=== PATIENT | female | born 1960 | race Caucasian/White ===

== ENCOUNTER 2016-08-20 16:45 | Emergency (ER) | payer BC ==
[2016-08-20 17:00] VITALS: BP 135/92
[2016-08-20] MEDS ORDERED: Sodium Chloride 0.9% 10 ML Syringe FLUSH PRN (17:29)
[2016-08-20] MEDS ORDERED: Lactated Ringers 1,000 ML IV SCH (17:30)
[2016-08-20] MEDS ORDERED: Ondansetron 4 MG/2 ML SDV IVPUSH ONE (17:31)
--- NOTE | 2016-08-20 17:33 | EDM.PDOC ---
ED HISTORY OF PRESENT ILLNESS - General Chief Complaint: Gastrointestinal Problem Stated Complaint: HEADACHE,VOMITING Time Seen by Provider: 08/20/16 17:22 Source: Reports: Patient, Family, RN notes reviewed History Limitations: Reports: No limitations - History of Present Illness INITIAL COMMENTS - FREE TEXT/NARRATIVE: 56-year-old female presents emergency department for a complaint of nausea, vomiting and diarrhea she states she has a loose watery stool about every 15 minutes denies any fevers any sick contacts any recent travel. 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: Musculoskeletal History: Reports: Arthritis Psychiatric History: Reports: Anxiety, Depression Endocrine/Metabolic History: Reports: Obesity/BMI 30+ - Infectious Disease History Infectious Disease History: Reports: Chicken pox - Past Surgical History GI Surgical History: Reports: Cholecystectomy, Colonoscopy, EGD Female Surgical History: Reports: Hysterectomy Musculoskeletal Surgical History: Reports: Arthroscopic knee, Other (see below) Other Musculoskeletal Surgeries/Procedures:: arthroscopic knee left x2 Social & Family History - Family History Family Medical History: Noncontributory - Tobacco Use Smoking Status *Q: Current Every Day Smoker Years of Tobacco use: 30 Packs/Tins Daily: 0.1 - Recreational Drug Use Recreational Drug Use: No ED ROS GENERAL - Review of Systems Review Of Systems: See Below Constitutional: Denies: fever, chills HEENT: Reports: No symptoms Respiratory: Reports: No Symptoms Cardiovascular: Reports: No symptoms GI/Abdominal: Reports: Abdominal pain, Diarrhea, Nausea, Vomiting : Reports: no symptoms ED EXAM, GENERAL - Physical Exam Exam: See Below Free Text/Narrative:: General: Female, not in any distress, alert and oriented x3 HEENT: head is atraumatic normocephalic, eyes pupils equal round reactive to light, sclera clear no conjunctivitis appreciated. Ears blocked by cerumen bilaterally. Nose no septal deviation, nares are clear, no blood present. Mouth mucosa is dry and pink no erythema or exudate noted in soft palate, tongue is midline uvula is midline, dentition is intact. Neck: Supple no thyromegaly no tracheal deviation. Nodes: Cervical nodes subclavicular nodes nontender no palpable lymphadenopathy noted. Lungs: clear to auscultation bilaterally with symmetrical respirations, no adventitious noise appreciated. CV: Regular rate and rhythm S1 and S2 appreciated no murmurs rubs or gallops noted. Abdomen: Soft, nontender, no palpable masses or organomegaly appreciated, no distention no guarding bowel sounds are present, . Neuro: Cranial nerves II through XII grossly intact Skin: Warm and dry, intact Extremities: No lower extremity edema appreciated, pedal pulse is +2. Course - Vital Signs Last Recorded V/S: Last Vital Signs Temp 99.0 F 08/20/16 17:11 Pulse 77 08/20/16 17:11 Resp 16 08/20/16 17:11 BP 135/92 H 08/20/16 17:11 Pulse Ox 98 08/20/16 17:11 - Orders/Labs/Meds Orders: Active Orders 24 hr Category Date Time Status Peripheral IV Care [RC] . DIRECTED Care 08/20/16 17:30 Active CLOSTRIDIUM DIFFICILE BY PCR [RM] Stat Lab 08/20/16 18:19 Uncollected CULTURE STOOL + SHIGATOX [RM] Stat Lab 08/20/16 18:19 Uncollected UA W/MICROSCOPIC [URIN] Urgent Lab 08/20/16 17:29 Uncollected WBC, STOOL [OP] Stat Lab 08/20/16 18:19 Uncollected Lactated Ringers [Ringers, Lactated] 1,000 ml Med 08/20/16 17:30 Active IV ASDIRECTED Sodium Chloride 0.9% [Saline Flush] Med 08/20/16 17:29 Active 10 ml FLUSH ASDIRECTED PRN Peripheral IV Insertion Adult [OM.PC] Urgent Oth 08/20/16 17:29 Ordered Medication Orders Lactated Ringer's (Ringers, Lactated) 1,000 mls @ 999 mls/hr IV ASDIRECTED WILLIAM Last Admin: 08/20/16 17:45 Dose: 999 mls/hr Sodium Chloride (Saline Flush) 10 ml FLUSH ASDIRECTED PRN PRN Reason: Keep Vein Open Last Admin: 08/20/16 17:45 Dose: 10 ml Labs: Laboratory Tests 08/20/16 08/20/16 08/20/16 Range/Units 17:29 17:29 17:29 WBC 11.0 (4.5-11.0) K/uL RBC 5.43 (3.30-5.50) M/uL Hgb 15.6 H (12.0-15.0) g/dL Hct 47.1 (36.0-48.0) % MCV 87 (80-98) fL MCH 29 (27-31) pg MCHC 33 (32-36) % Plt Count 369 (150-400) K/uL Neut % (Auto) 93 H (36-66) % Lymph % (Auto) 4 L (24-44) % [place] % (Auto) 3 (2-6) % Eos % (Auto) 0 L (2-4) % Baso % (Auto) 0 (0-1) % Sodium 144 (140-148) mmol/L Potassium 3.9 (3.6-5.2) mmol/L Chloride 106 (100-108) mmol/L Carbon Dioxide 26 (21-32) mmol/L Anion Gap 11.6 (5.0-14.0) mmol/L BUN 17 (7-18) mg/dL Creatinine 1.0 (0.6-1.0) mg/dL Est Cr Clr Drug Dosing 66.43 mL/min Estimated GFR (MDRD) 58 L (>60) Glucose 139 H (74-106) mg/dL Lactic Acid 2.1 H (0.4-2.0) mmol/L Calcium 9.2 (8.5-10.1) mg/dL Total Bilirubin 0.7 (0.2-1.0) mg/dL AST 14 L (15-37) U/L ALT 25 (12-78) U/L Alkaline Phosphatase 86 (46-116) U/L Total Protein 8.8 H (6.4-8.2) g/dL Albumin 3.9 (3.4-5.0) g/dL Globulin 4.9 H (2.3-3.5) g/dL Albumin/Globulin Ratio 0.8 L (1.2-2.2) Lipase 77 (73-393) U/L Meds: Medications Generic Name Dose Route Start Last Admin Trade Name Freq PRN Reason Stop Dose Admin Lactated Ringer's 1,000 mls @ 999 mls/hr 08/20/16 17:30 08/20/16 17:45 Ringers, Lactated IV 999 mls/hr ASDIRECTED WILLIAM Administration Sodium Chloride 10 ml 08/20/16 17:29 08/20/16 17:45 Saline Flush FLUSH 10 ml ASDIRECTED PRN Administration Keep Vein Open Discontinued Medications Generic Name Dose Route Start Last Admin Trade Name Freq PRN Reason Stop Dose Admin Ondansetron HCl 4 mg 08/20/16 17:31 08/20/16 17:44 Zofran IVPUSH 08/20/16 17:32 4 mg ONETIME ONE Administration Departure - Departure Time of Disposition: 19:34 Disposition: Home, Self-Care 01 Condition: good Clinical Impression: Gastroenteritis Forms: ED Department Discharge Additional Instructions: Uses Zofran as needed to control nausea and vomiting symptoms, Please followup with your primary care provider in 3-5 days if not better, please call return to the emergency department with worsening of symptoms. - My Orders Last 24 Hours: My Active Orders 08/20/16 17:29 UA W/MICROSCOPIC [URIN] Urgent Sodium Chloride 0.9% [Saline Flush] 10 ml FLUSH ASDIRECTED PRN Peripheral IV Insertion Adult [OM.PC] Urgent 08/20/16 17:30 Peripheral IV Care [RC] . DIRECTED Lactated Ringers [Ringers, Lactated] 1,000 ml IV ASDIRECTED 08/20/16 18:19 CLOSTRIDIUM DIFFICILE BY PCR [RM] Stat CULTURE STOOL + SHIGATOX [RM] Stat WBC, STOOL [OP] Stat - Assessment/Plan Last 24 Hours: My Active Orders 08/20/16 17:29 UA W/MICROSCOPIC [URIN] Urgent Sodium Chloride 0.9% [Saline Flush] 10 ml FLUSH ASDIRECTED PRN Peripheral IV Insertion Adult [OM.PC] Urgent 08/20/16 17:30 Peripheral IV Care [RC] . DIRECTED Lactated Ringers [Ringers, Lactated] 1,000 ml IV ASDIRECTED 08/20/16 18:19 CLOSTRIDIUM DIFFICILE BY PCR [RM] Stat CULTURE STOOL + SHIGATOX [RM] Stat WBC, STOOL [OP] Stat Plan: Assessment Acuity = acute Site and laterality = gastroenteritis Etiology = probable viral cause Manifestations = nausea vomiting and diarrhea Location of injury = home Lab values = CBC, CMP within normal limits Plan She had improvement with Zofran provided as well as 1 L of fluids unable to provide a stool sample plan is to discharge home with Zofran push fluids followup with primary care in 2-3 days if not better Patient was in agreement with the plan all questions were answered, they were instructed to return to the emergency department or call for worsening symptoms. This note was dictated using [employer] voice recognition software please call with any questions.
== END 2016-08-20 19:32 | disposition home or self-care (01) ==
LOC: JP.ED 16:45
DX: K52.9 Noninfective gastroenteritis and colitis, unspecified (principal); K21.9 Gastro-esophageal reflux disease without esophagitis; F41.9 Anxiety disorder, unspecified; F32.9 Major depressive disorder, single episode, unspecified; F17.210 Nicotine dependence, cigarettes, uncomplicated; E66.9 Obesity, unspecified; Z68.39 Body mass index [BMI] 39.0-39.9, adult; Z90.49 Acquired absence of other specified parts of digestive tract; Z90.710 Acquired absence of both cervix and uterus; Z98.890 Other specified postprocedural states
CPT/HCPCS: 36415; 80053; 81001; 83605; 83690; 85025; 87046; 87493; 87899; 89055; 96361; 96374; 99284; J2405; J7050; J7120

== ENCOUNTER 2016-11-05 16:40 | Emergency (ER) | payer BC ==
[2016-11-05] MEDS ORDERED: Aspirin 81 MG Tab.Chew PO ONE (17:06)
[2016-11-05] MEDS ORDERED: Sodium Chloride 0.9% 10 ML Syringe FLUSH PRN (17:06)
[2016-11-05] MEDS ORDERED: Nitroglycerin 0.4 MG Tab.SL SL PRN (17:06)
[2016-11-05] MEDS ORDERED: Morphine 2 MG/ML Syringe IVPUSH PRN (17:06)
--- NOTE | 2016-11-05 17:14 | EDM.PDOC ---
ED HPI GENERAL MEDICAL PROBLEM - General Chief Complaint: Chest Pain Stated Complaint: CHEST PAIN Time Seen by Provider: 11/05/16 17:05 Source of Information: Reports: Patient, RN Notes Reviewed History Limitations: Reports: No Limitations - History of Present Illness INITIAL COMMENTS - FREE TEXT/NARRATIVE: 56-year-old female presents emergency department day complaint of chest pain, she states the chest pain awoke her this morning this progressed throughout the day she rates it 6 out of 10 she does get radiations up into the jaw no nausea no shortness of breath no diaphoresis she does get short of breath when she exerts himself in the chest pain does get worse when she exerts herself. She has no cardiac history no history of diabetes she does have a family history with her father dying of myocardial infarction when he was 86 left chest/jaw Pain Score (Numeric/FACES): 6 - Related Data Allergies Allergy/AdvReac Type Severity Reaction Status Date / Time No Known Allergies Allergy Verified 11/05/16 16:47 Home Meds: Home Meds Estradiol [Estradiol] 1 mg PO DAILY 10/20/15 [History] FLUoxetine [PROzac] 40 mg PO DAILY 10/20/15 [History] Omeprazole [Omeprazole] 20 mg PO DAILY 10/20/15 [History] Metoprolol Succinate [Toprol XL] 25 mg PO DAILY 08/20/16 [History] Past Medical History HEENT History: Reports: Impaired Vision 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: Reports: 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: Musculoskeletal History: Reports: Arthritis Psychiatric History: Reports: Anxiety, Depression Endocrine/Metabolic History: Reports: Obesity/BMI 30+ - Infectious Disease History Infectious Disease History: Reports: Chicken Pox - Past Surgical History Musculoskeletal Surgical History: Reports: Arthroscopic Knee, Other (See Below) Social & Family History - Family History Cardiac: Reports: CAD (Father) - Tobacco Use Smoking Status *Q: Current Some Day Smoker Years of Tobacco use: 10 Packs/Tins Daily: 0.5 - Recreational Drug Use Recreational Drug Use: No ED ROS GENERAL - Review of Systems Review Of Systems: See Below Constitutional: Reports: No Symptoms. Denies: Diaphoresis HEENT: Reports: No Symptoms Respiratory: Reports: Shortness of Breath (Only on exertion) Cardiovascular: Reports: Chest Pain, Dyspnea on Exertion GI/Abdominal: Denies: Nausea, Vomiting : Reports: No Symptoms Musculoskeletal: Reports: No Symptoms Skin: Reports: No Symptoms Neurological: Reports: No Symptoms ED EXAM, GENERAL - Physical Exam Exam: See Below Free Text/Narrative:: General: Female, in mild discomfort secondary to pain, alert and oriented x3 HEENT: head is atraumatic normocephalic, eyes pupils equal round reactive to light, sclera clear no conjunctivitis appreciated. Ears tympanic membranes clear and castillo landmarks and light reflex are present bilaterally canals are clear. Nose no septal deviation, nares are clear, no blood present. Mouth mucosa is moist and pink no erythema or exudate noted in soft palate, tongue is midline uvula is midline, dentition is intact. Neck: Supple no thyromegaly no tracheal deviation. Nodes: Cervical nodes subclavicular nodes nontender no palpable lymphadenopathy noted. Lungs: clear to auscultation bilaterally with symmetrical respirations, no adventitious noise appreciated. CV: Regular rate and rhythm S1 and S2 appreciated no murmurs rubs or gallops noted. Abdomen: Soft, nontender, no palpable masses or organomegaly appreciated, no distention no guarding bowel sounds are present, . Neuro: Cranial nerves II through XII grossly intact Skin: Warm and dry, intact Extremities: No lower extremity edema appreciated Exam Limited By: No Limitations General Appearance: Alert, WD/WN, No Apparent Distress Course - Vital Signs Last Recorded V/S: Last Vital Signs Temp 98.5 F 11/05/16 16:45 Pulse Resp 16 11/05/16 18:56 BP 151/77 H 11/05/16 18:56 Pulse Ox 99 11/05/16 18:56 - Orders/Labs/Meds Orders: Active Orders 24 hr Category Date Time Status Cardiac Monitoring [RC] .As Directed Care 11/05/16 17:06 Active EKG Documentation Completion [RC] ASDIRECTED Care 11/05/16 17:07 Active Peripheral IV Care [RC] . DIRECTED Care 11/05/16 17:07 Active Chest 1V Frontal [CR] Stat Exams 11/05/16 17:07 Taken Morphine Med 11/05/16 17:06 Active 2 mg IVPUSH Q10M PRN Nitroglycerin [Nitrostat] Med 11/05/16 17:06 Active 0.4 mg SL Q5M PRN Sodium Chloride 0.9% [Saline Flush] Med 11/05/16 17:06 Active 10 ml FLUSH ASDIRECTED PRN Peripheral IV Insertion Adult [OM.PC] Stat Oth 11/05/16 17:06 Ordered Saline Lock Insert [OM.PC] Stat Oth 11/05/16 17:06 Ordered EKG 12 Lead [EK] Stat Ther 11/05/16 17:07 Ordered Medication Orders Morphine Sulfate (Morphine) 2 mg IVPUSH Q10M PRN PRN Reason: Chest Pain Stop: 11/06/16 17:06 Last Admin: 11/05/16 17:55 Dose: 2 mg Nitroglycerin (Nitrostat) 0.4 mg SL Q5M PRN PRN Reason: Chest Pain Stop: 11/06/16 17:06 Last Admin: 11/05/16 17:19 Dose: 0.4 mg Sodium Chloride (Saline Flush) 10 ml FLUSH ASDIRECTED PRN PRN Reason: Keep Vein Open Labs: Laboratory Tests 11/05/16 11/05/16 11/05/16 Range/Units 17:00 17:00 17:00 WBC 8.8 (4.5-11.0) K/uL RBC 4.49 (3.30-5.50) M/uL Hgb 12.9 D (12.0-15.0) g/dL Hct 40.2 (36.0-48.0) % MCV 90 (80-98) fL MCH 29 (27-31) pg MCHC 32 (32-36) % Plt Count 302 (150-400) K/uL Neut % (Auto) 59 (36-66) % Lymph % (Auto) 30 (24-44) % [place] % (Auto) 9 H (2-6) % Eos % (Auto) 2 (2-4) % Baso % (Auto) 0 (0-1) % PT 10.4 (9.5-12.0) sec INR 0.97 (0.80-1.20) APTT 29.4 (27.0-36.0) sec D-Dimer, Quantitative (0.0-400.0) ng/mL Sodium 141 (140-148) mmol/L Potassium 4.2 (3.6-5.2) mmol/L Chloride 105 (100-108) mmol/L Carbon Dioxide 29 (21-32) mmol/L Anion Gap 7.3 (5.0-14.0) mmol/L BUN 11 (7-18) mg/dL Creatinine 0.8 (0.6-1.0) mg/dL Est Cr Clr Drug Dosing TNP Estimated GFR (MDRD) > 60 (>60) Glucose 92 (74-106) mg/dL Calcium 8.4 L (8.5-10.1) mg/dL Total Bilirubin 0.3 D (0.2-1.0) mg/dL AST 14 L (15-37) U/L ALT 18 (12-78) U/L Alkaline Phosphatase 78 (46-116) U/L CK-MB (CK-2) 1.2 (0-3.6) mg/mL Troponin I < 0.017 (0.000-0.056) ng/mL Total Protein 6.8 (6.4-8.2) g/dL Albumin 3.2 L (3.4-5.0) g/dL Globulin 3.6 H (2.3-3.5) g/dL Albumin/Globulin Ratio 0.9 L (1.2-2.2) 11/05/16 Range/Units 17:30 WBC (4.5-11.0) K/uL RBC (3.30-5.50) M/uL Hgb (12.0-15.0) g/dL Hct (36.0-48.0) % MCV (80-98) fL MCH (27-31) pg MCHC (32-36) % Plt Count (150-400) K/uL Neut % (Auto) (36-66) % Lymph % (Auto) (24-44) % [place] % (Auto) (2-6) % Eos % (Auto) (2-4) % Baso % (Auto) (0-1) % PT (9.5-12.0) sec INR (0.80-1.20) APTT (27.0-36.0) sec D-Dimer, Quantitative 180 (0.0-400.0) ng/mL Sodium (140-148) mmol/L Potassium (3.6-5.2) mmol/L Chloride (100-108) mmol/L Carbon Dioxide (21-32) mmol/L Anion Gap (5.0-14.0) mmol/L BUN (7-18) mg/dL Creatinine (0.6-1.0) mg/dL Est Cr Clr Drug Dosing Estimated GFR (MDRD) (>60) Glucose (74-106) mg/dL Calcium (8.5-10.1) mg/dL Total Bilirubin (0.2-1.0) mg/dL AST (15-37) U/L ALT (12-78) U/L Alkaline Phosphatase (46-116) U/L CK-MB (CK-2) (0-3.6) mg/mL Troponin I (0.000-0.056) ng/mL Total Protein (6.4-8.2) g/dL Albumin (3.4-5.0) g/dL Globulin (2.3-3.5) g/dL Albumin/Globulin Ratio (1.2-2.2) Meds: Medications Generic Name Dose Route Start Last Admin Trade Name Freq PRN Reason Stop Dose Admin Morphine Sulfate 2 mg 11/05/16 17:06 11/05/16 17:55 Morphine IVPUSH 11/06/16 17:06 2 mg Q10M PRN Administration Chest Pain Nitroglycerin 0.4 mg 11/05/16 17:06 11/05/16 17:19 Nitrostat SL 11/06/16 17:06 0.4 mg Q5M PRN Administration Chest Pain Sodium Chloride 10 ml 11/05/16 17:06 Saline Flush FLUSH ASDIRECTED PRN Keep Vein Open Discontinued Medications Generic Name Dose Route Start Last Admin Trade Name Freq PRN Reason Stop Dose Admin Aspirin 324 mg 11/05/16 17:06 11/05/16 17:18 Aspirin PO 11/05/16 17:07 324 mg ONETIME ONE Administration Al Hydroxide/Mg Hydroxide 15 0 ml 11/05/16 18:10 11/05/16 18:24 ml/ Lidocaine HCl 15 ml PO 11/05/16 18:11 15 ml ONETIME ONE Administration Ketorolac Tromethamine 30 mg 11/05/16 18:37 11/05/16 18:52 Toradol IVPUSH 11/05/16 18:38 30 mg ONETIME ONE Administration Departure - Departure Time of Disposition: 19:28 Disposition: Home, Self-Care 01 Condition: Good Clinical Impression: Atypical chest pain Forms: ED Department Discharge Additional Instructions: Please follow-up with primary care after your stress test, call or return to the emergency department worsening of symptoms - My Orders Last 24 Hours: My Active Orders 11/05/16 17:06 Cardiac Monitoring [RC] .As Directed Morphine 2 mg IVPUSH Q10M PRN Nitroglycerin [Nitrostat] 0.4 mg SL Q5M PRN Sodium Chloride 0.9% [Saline Flush] 10 ml FLUSH ASDIRECTED PRN Peripheral IV Insertion Adult [OM.PC] Stat Saline Lock Insert [OM.PC] Stat 11/05/16 17:07 EKG Documentation Completion [RC] ASDIRECTED Peripheral IV Care [RC] . DIRECTED Chest 1V Frontal [CR] Stat EKG 12 Lead [EK] Stat - Assessment/Plan Last 24 Hours: My Active Orders 11/05/16 17:06 Cardiac Monitoring [RC] .As Directed Morphine 2 mg IVPUSH Q10M PRN Nitroglycerin [Nitrostat] 0.4 mg SL Q5M PRN Sodium Chloride 0.9% [Saline Flush] 10 ml FLUSH ASDIRECTED PRN Peripheral IV Insertion Adult [OM.PC] Stat Saline Lock Insert [OM.PC] Stat 11/05/16 17:07 EKG Documentation Completion [RC] ASDIRECTED Peripheral IV Care [RC] . DIRECTED Chest 1V Frontal [CR] Stat EKG 12 Lead [EK] Stat Plan: Assessment Acuity = acute Site and laterality = atypical chest pain complicated patient with hypertension Etiology = unclear etiology Manifestations = pain Location of injury = home Lab values = CBC, CMP, troponin, d-dimer normal, EKG shows normal sinus rhythm no ST elevations or depressions, chest x-ray I did review films myself I cannot appreciate any acute process, the official read from radiology is pending Plan I did offer her admission further evaluation she declined however she would like to do stress test therefore a set her up for a Lexiscan stress test hopefully get that done on Friday of this week and have her follow-up with primary care in the clinic Patient was in agreement with the plan all questions were answered, they were instructed to return to the emergency department or call for worsening symptoms. This note was dictated using [employer] voice recognition software please call with any questions.
[2016-11-05] MEDS ORDERED: Alum Hydrox/Mag Hydrox/Simeth 15 ML, Lidocaine 2% 15 ML PO ONE ×2 (18:10)
[2016-11-05] MEDS ORDERED: Ketorolac 30 MG/ML SDV IVPUSH ONE (18:37)
[2016-11-05 20:39] VITALS: BP 140/92
--- NOTE | 2016-11-06 08:49 | CR ---
Chest 1V Frontal HISTORY: Chest Pain COMPARISON: None FINDINGS: Portable chest, 1720 hours. Lungs appear clear and normally aerated. Cardiomediastinal silhouette is within normal limits. No va scular redistribution or pleural fluid can be seen. Bony structures and soft tissues are unremarkabl e. IMPRESSION: No acute chest abnormality identified.
== END 2016-11-05 19:42 | disposition home or self-care (01) ==
LOC: JP.ED 16:40
DX: R07.89 Other chest pain (principal); K21.9 Gastro-esophageal reflux disease without esophagitis; F32.9 Major depressive disorder, single episode, unspecified; E66.9 Obesity, unspecified; F17.210 Nicotine dependence, cigarettes, uncomplicated; M19.90 Unspecified osteoarthritis, unspecified site; F41.9 Anxiety disorder, unspecified; Z79.899 Other long term (current) drug therapy
CPT/HCPCS: 36415; 71010; 80053; 82553; 84484; 85025; 85379; 85610; 85730; 93005; 96365; 96366; 96375; 99285; A9270; J1885; J2270

== ENCOUNTER 2018-11-24 18:05 | Emergency (ER) | payer BC ==
[2018-11-24 18:18] VITALS: BP 143/63; PULSE 59
--- NOTE | 2018-11-24 18:52 | EDM.PDOC ---
ED HPI GENERAL MEDICAL PROBLEM - General Chief Complaint: Respiratory Problem Stated Complaint: BACK AND SIDE PAIN Time Seen by Provider: 11/24/18 18:52 Source of Information: Reports: Patient, Family History Limitations: Reports: No Limitations - History of Present Illness INITIAL COMMENTS - FREE TEXT/NARRATIVE: 58-year-old female with a left lung biopsy yesterday, was discharged with a very tiny apical pneumothorax but stable. Today after coughing spell she developed more pain and pleuritic pain, no significant increase in shortness of breath but she called the surgical hotline and they recommended she come in for a chest x-ray. She was given nothing for pain. She has no fevers or chills. No hemoptysis. Denies nausea or vomiting or fever. Duration: Day(s): (Symptoms for the past 24 hours since her procedure, worse the last 6) Location: Reports: Chest, Back Associated Symptoms: Reports: Chest Pain (With breathing or movement), Cough ( Nonproductive) left side Pain Score (Numeric/FACES): 5 - Related Data Allergies Allergy/AdvReac Type Severity Reaction Status Date / Time No Known Allergies Allergy Verified 11/24/18 18:36 Home Meds: Home Meds FLUoxetine [PROzac] 40 mg PO DAILY 10/20/15 [History] Omeprazole 40 mg PO DAILY 10/20/15 [History] Metoprolol Succinate [Toprol XL] 25 mg PO DAILY 08/20/16 [History] Albuterol Sulfate [Proair Hfa] 2 inh INH Q6H PRN 11/18/18 [History] Aspirin [Adult Low Dose Aspirin EC] 81 mg PO DAILY 11/18/18 [History] Nitroglycerin [Nitrostat] 0.4 mg SL ASDIRECTED PRN 11/18/18 [History] Oxybutynin Chloride [Ditropan Xl] 10 mg PO DAILY 11/18/18 [History] amLODIPine [Norvasc] 5 mg PO DAILY 11/18/18 [History] atorvaSTATin [Lipitor] 80 mg PO BEDTIME 11/18/18 [History] raNITIdine HCl [Zantac] 150 mg PO BID 11/18/18 [History] Past Medical History HEENT History: Reports: Impaired Vision Cardiovascular History: Reports: Angina, Arrhythmia Respiratory History: Reports: Other (See Below) Other Respiratory History: chronic cough 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: Reports: 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: Musculoskeletal History: Reports: Arthritis Psychiatric History: Reports: Anxiety, Depression Endocrine/Metabolic History: Reports: Obesity/BMI 30+ - Infectious Disease History Infectious Disease History: Reports: Chicken Pox - Past Surgical History Cardiovascular Surgical History: Reports: None GI Surgical History: Reports: Cholecystectomy Female Surgical History: Reports: Hysterectomy, Other (See Below) Other Female Surgeries/Procedures: bladder suspension Musculoskeletal Surgical History: Reports: Arthroscopic Knee Oncologic Surgical History: Reports: Other (See Below) Other Oncologic Surgeries/Procedures: lung biopsy Social & Family History - Family History Family Medical History: Noncontributory Cardiac: Reports: CAD - Tobacco Use Smoking Status *Q: Current Some Day Smoker Years of Tobacco use: 30 Packs/Tins Daily: 0.2 - Caffeine Use Caffeine Use: Reports: Coffee, Soda, Tea - Recreational Drug Use Recreational Drug Use: No ED ROS GENERAL - Review of Systems Review Of Systems: See Below Constitutional: Denies: Fever, Chills HEENT: Reports: No Symptoms Respiratory: Reports: Pleuritic Chest Pain, Cough Cardiovascular: Reports: Chest Pain GI/Abdominal: Denies: Abdominal Pain, Nausea, Vomiting : Reports: No Symptoms Musculoskeletal: Reports: Other (Left flank pain near her some biopsy site her biopsy site) Neurological: Reports: No Symptoms ED EXAM, GENERAL - Physical Exam Exam: See Below Exam Limited By: No Limitations General Appearance: Alert, No Apparent Distress, Other (Looks uncomfortable) Head: Atraumatic Respiratory/Chest: No Respiratory Distress, Lungs Clear (Lungs sound symmetric posteriorly, it is difficult for her to take a deep breath) Cardiovascular: Regular Rate, Rhythm GI/Abdominal: Non-Tender Course - Vital Signs Last Recorded V/S: Last Vital Signs Temp 98.7 F 11/24/18 18:35 Pulse 59 L 11/24/18 18:35 Resp 16 11/24/18 18:35 BP 143/63 H 11/24/18 18:35 Pulse Ox 96 11/24/18 18:35 - Re-Assessments/Exams Free Text/Narrative Re-Assessment/Exam: 11/24/18 18:58 A two-view chest x-ray was obtained. 11/24/18 19:13 Two-view chest x-ray is normal, no evidence of pneumothorax or effusion or other acute findings. Patient was reassured and given 10 hydrocodone for extra pain control. She can return anytime if she feels she is worsening. Departure - Departure Time of Disposition: 19:42 Disposition: Home, Self-Care 01 Clinical Impression: Pleurisy - Discharge Information Instructions: Pleurisy, [id number] Referrals: Marianne Rodgers MD [Primary Care Provider] - Forms: ED Department Discharge Care Plan Goals: Continue current medications, add stronger pain medication if needed. Recheck as scheduled or return sooner if increased difficulty breathing or you develop other concerns.
--- NOTE | 2018-11-24 19:23 | CRLCR ---
Indication: Dyspnea Technique: Chest 2 views Comparison: None Findings: Cardiovascular and mediastinum: Normal heart size with mild aortic tortuosity. Lungs and pleural spaces: No pleural effusion or pneumothorax. Slight patchy and linear opacities left lung base. Bones and soft tissues: Upper abdominal surgical clips. Impression: Slight patchy and linear opacities left lung base, likely atelectasis. Dictated by Ector Cespedes MD @ Nov 24 2018 7:19PM Signed by Dr. Ector Cespedes @ Nov 24 2018 7:21PM
== END 2018-11-24 19:42 | disposition home or self-care (01) ==
LOC: JP.ED 18:05
DX: R09.1 Pleurisy (principal); F17.210 Nicotine dependence, cigarettes, uncomplicated; K21.9 Gastro-esophageal reflux disease without esophagitis; Z79.899 Other long term (current) drug therapy; Z79.82 Long term (current) use of aspirin
CPT/HCPCS: 71046; 99284-25

== ENCOUNTER 2018-11-27 08:13 | Day surgery (SDC) | payer BC ==
[2018-11-27] MEDS ORDERED: Ondansetron 4 MG/2 ML SDV ONE (08:33)
[2018-11-27] MEDS ORDERED: Neostigmine Methylsulfate 1 MG/ML 5 ML Syringe ONE (08:33)
[2018-11-27] MEDS ORDERED: Propofol 200 MG/20 ML SDV ONE ×2 (08:33→09:52)
[2018-11-27] MEDS ORDERED: Glycopyrrolate 0.2 MG/ML 5 ML MDV ONE (08:33)
[2018-11-27] MEDS ORDERED: Rocuronium 50 MG/5 ML Vial ONE (08:33)
[2018-11-27] MEDS ORDERED: Succinylcholine 200 MG/10 ML MDV ONE (08:33)
[2018-11-27] MEDS ORDERED: Dexamethasone 4 MG/ML SDV ONE (08:33)
[2018-11-27] MEDS ORDERED: Bupivacaine 0.5% 50 ML MDV ONE (09:15)
[2018-11-27] MEDS ORDERED: Lidocaine 1% with EPINEPHrine 1:100,000 50 ML MDV ONE (09:15)
[2018-11-27] MEDS ORDERED: Dextrose 5%-Lactated Ringers 1,000 ML IV SCH (09:30)
[2018-11-27] MEDS ORDERED: Albuterol/Ipratropium 3.0-0.5 MG/3 ML Neb Soln NEB ONE (09:30)
[2018-11-27] MEDS ORDERED: ceFAZolin 2 GM in Premix Bag 1 BAG IV ONE (09:30)
[2018-11-27] MEDS ORDERED: Midazolam 1 MG/ML 2 ML SDV ONE (09:50)
[2018-11-27] MEDS ORDERED: fentaNYL 100 MCG/2 ML SDV ONE (09:51)
[2018-11-27 12:47] VITALS: BP 103/54; PULSE 51
--- NOTE | 2018-12-07 12:22 | OR ---
DATE OF PROCEDURE: 11/27/2018 PREOPERATIVE DIAGNOSIS: PET scan showing uptake in the right parajugular cervical lymph nodes. POSTOPERATIVE DIAGNOSIS: PET scan showing uptake in the right parajugular cervical lymph nodes. OPERATIVE PROCEDURE: Excision of deep jugular lymph nodes of the right cervical area with intraoperative ultrasound ([id number]). ANESTHESIA: Local plus IV sedation. INDICATION FOR PROCEDURE: The patient presented initially with an increasing cough. As part of the workup, the patient underwent a PET scan, which showed abnormal uptake in the parajugular lymph nodes in the right lower neck. Attempt was to biopsy these up with CT guidance this past Friday, but was not able to be completed due to the presence of the jugular and carotid vessels more or less overlapping the area of concern. I had to proceed with an open excisional biopsy of the parajugular lymph nodes with intraoperative ultrasound to confirm the location of the nodes of concern, which were more or less in the low portion of the neck and just medial to the internal jugular vein. Potential risks, including bleeding, infection, and injury to the vessels in the area or phrenic nerve, were gone over, along with the possibility of some lymphatic leakage postoperatively, and the patient wishes to proceed. DETAILS OF PROCEDURE: The patient was taken to the operating room and placed in a supine position with the head turned somewhat towards the left. Initially, ultrasound was used to cynthia the location of the enlarged lymph nodes with a skin marker, giving us some guidance. That area was then prepped and draped and anesthetized with 1% lidocaine mixed with Marcaine. A transversely oriented incision using one of the skin creases over the center of the area of the lymph node was made and carried down through the skin, subcutaneous tissue, and platysmal layers, and at that point, the sternocleidomastoid muscle was retracted somewhat laterally. This then allowed exposure of the paratracheal lymph nodes. Large wounds were then taken out using electrocautery, and some of the fatty tissue above and below that, including a portion of the scalene fat pad, was removed, which appeared to contain some smaller additional sebastián tissue. At that point, no further problems were noted. The incision was closed with some 3-0 and 4-0 Vicryl stitch deep and a 4-0 Vicryl subcuticular stitch. Steri-Strips were applied. The patient was then taken to the recovery room in satisfactory condition. Of note, frozen section was obtained, which failed to show obvious neoplasia. The final pathology report is obviously pending. We will see the patient back next Friday. If these nodes are nondiagnostic, the next step is probably Pulmonary Medicine consult. Jluis Hylton MD /[id number]
== END 2018-11-27 13:24 | disposition home or self-care (01) ==
LOC: JP.SDS 08:13
PROVIDERS: ATTEND Surgery
DX: R93.89 Abnormal findings on diagnostic imaging of other specified body structures (principal)
CPT/HCPCS: 38520; 76998; 87015; 87070; 87102; 87116; 87205; 87206; 87220; 88305; 88331; 88334; 88341; 88342; J0690; J2250; J2704; J3010; J3490; J7042; J0330; J1100; J2405; J2710; J7620-GY